=== PATIENT | female | born 2005 | race Caucasian/White ===

== ENCOUNTER 2024-06-28 06:55 | Emergency (ER) | payer MEDICAID ==
[~2024-06-28] VITALS: Ht 165.1 cm; Wt 68.0 kg
[2024-06-28 07:29] LABS: BASOPHILS % (AUTO) 0.5 % (0-1); EOSINOPHILS # (AUTO) 0.1 X10'3 (0-0.9); EOSINOPHILS % (AUTO) 1.3 % (0-6); HEMATOCRIT 41.2 % (35.0-45.0); HEMOGLOBIN 14.5 g/dl (12.0-16.0); LYMPHOCYTES # (AUTO) 1.1 X10'3 (1.1-4.8); LYMPHOCYTES % (AUTO) 13.7 % (21-51); MEAN CORPUSCULAR HEMOGLOBIN 29.8 PG (27.0-31.0); MEAN CORPUSCULAR HGB CONC 35.2 g/dL (33.0-36.5); MEAN CORPUSCULAR VOLUME 84.7 FL (78-98); MEAN PLATELET VOLUME 8.1 FL (7.4-10.4); MONOCYTES # (AUTO) 0.7 X10'3 (0-0.9); MONOCYTES % (AUTO) 8.3 % (2-12); NEUTROPHILS # (AUTO) 6.1 X10'3 (1.8-7.7); NEUTROPHILS % (AUTO) 76.2 % (42-75); PLATELET COUNT 257 X10'3 (140-440); RED BLOOD COUNT 4.87 X10'6 (4.20-5.60); RED CELL DISTRIBUTION WIDTH 13.4 % (11.5-14.5)
[2024-06-28 07:31] VITALS: TEMP 98.5
[2024-06-28 07:32] LABS: URINE HCG NEGATIVE (NEG)
[2024-06-28 07:43] LABS: ALANINE AMINOTRANSFERASE 12 U/L (12-78); ALKALINE PHOSPHATASE 90 IU/L (46-116); ANION GAP 11 (8-16); ASPARTATE AMINO TRANSFERASE 14 U/L (10-37); BILIRUBIN,TOTAL 0.5 MG/DL (0.1-1.0); BLOOD UREA NITROGEN 9 MG/DL (7-18); BUN/CREATININE RATIO 10.8 (10.0-20.0); CALCIUM 8.4 MG/DL (8.5-10.1); CHLORIDE 106 MMOL/L (99-107); CREATININE 0.83 MG/DL (0.40-0.90); GLUCOSE 81 MG/DL (70-104); LIPASE 30 U/L (16-77); POTASSIUM 3.5 MMOL/L (3.5-5.1); SODIUM 139 MMOL/L (135-145); TOTAL CARBON DIOXIDE 22.1 MMOL/L (24-32); eCRCL 96 ML/MIN; eGFR 87 ML/MIN
[2024-06-28 07:46] LABS: BILIRUBIN,URINE NEGATIVE (Neg); CLARITY,URINE CLEAR (Clear); COLOR,URINE YELLOW (Yellow); GLUCOSE, URINE NEGATIVE (Neg); KETONES,URINE NEGATIVE (Neg); LEUKOCYTE ESTERASE ,URINE NEGATIVE (Neg); NITRITES, URINE NEGATIVE (Neg); OCCULT BLOOD,URINE TRACE-INTACT (Neg); PH,URINE 5.5 (4.8-8.0); PROTEIN,URINE NEGATIVE (Neg); UROBILINOGEN,URINE 0.2 E.U/dL (0.2-1.0)
[2024-06-28 08:09] LABS: UA COLLECTION TYPE CLN CATCH MIDSTREAM
[2024-06-28 08:11] LABS: BACTERIA,URINE FEW /HPF (Neg); MUCUS STRANDS FEW /LPF (Neg); SQUAMOUS EPITHELIAL CELL,UR FEW /LPF (FEW); WBC,URINE 0-4 /HPF (0-4)
[2024-06-28 08:57] VITALS: BP 115/74; PULSE 78; RESP 16; O2SAT 99
== END 2024-06-28 08:58 | disposition home or self-care (01) ==
LOC: ER 06:56
DX: R10.32 Left lower quadrant pain (principal)
CPT/HCPCS: 36415; 76856; 80053; 81001; 81025; 83690; 84145; 85025; 93976; 99284

== ENCOUNTER 2025-02-11 19:03 | Emergency (ER) | payer MEDICAID ==
[~2025-02-11] VITALS: Ht 165.1 cm; Wt 71.8 kg
[2025-02-11 19:06] VITALS: BP 111/81; PULSE 105; RESP 16; TEMP 97.8; O2SAT 100
[2025-02-11 20:11] LABS: HCG SERUM QL POSITIVE
--- NOTE | 2025-02-11 20:56 | Physician Documentation ---
History of Present Illness General Chief Complaint: See Chief Complaint Stated Complaint: PG BLOOD TEST Time Seen by MD: 20:53 History of Present Illness Initial Comments This is a 27-year-old female who presents requesting a blood test as she has had three positive home test though one negative urine test at her primary care provider's office. Reports no other acute symptoms or concerns. Patient reports LMP January 17. Medication Reconciliation Allergies: Coded Allergies: No Known Allergies (Unverified , 11/12/24) Past Medical History Past Medical History: No Pertinent History Review of Systems ROS As stated above in the HPI, otherwise all systems are reviewed and negative. Physical Exam Physical Exam Vital Signs: Temperature: 97.8, Source: Temporal, Heart Rate: 105, Respiratory Rate: 16, BP: 111/81, Pulse Oximetry: 100, Weight: 71.820 Oxygen Flow Rate: 0 Physical Exam VITALS: Reviewed and as above. GENERAL: Alert, nontoxic appearing, no apparent distress. RESPIRATORY: No increased work of breathing, no respiratory distress, speaking in full clear sentences Progress Results/Orders Results/Orders Completed Orders - [facility] [employer] Hcg Serum Ql (02/11/25 19:14) Vital Signs 02/11/25 19:06 Temp 97.8 Pulse 105 Resp 16 B/P (MAP) 111/81 Pulse Ox 100 O2 Flow Rate 0 Laboratory Tests Test 02/11/25 19:38 Human Chorionic Gonadotropin, Qual Positive Medical Decision Making Findings This 19-year-old female presented requesting a serum test due to inconsistent readings of outpatient urine test, serum test was positive and patient will follow up with primary care provider and OB provider tomorrow. Patient had no other acute symptoms or concerns in his otherwise well-appearing and appropriate for outpatient follow up. Departure Disposition: HOME / SELF CARE / HOMELESS Impression: Primary Impression: Qualified Codes: Z3A.01 - Less than 8 weeks gestation of Condition: Improved Discharge Instructions: ABCs of Additional Instructions: Your test was positive. Please follow up with your OB provider as soon as possible. Please follow up with your primary care provider in the next few days. Please return to the emergency department for any new or worsening concerning symptoms. Referrals: NO PRIMARY CARE PROVIDER (PCP) Education Educated: Patient Educated regarding: diagnosis, treatment, prognosis, need for follow up Signature Scribe Signature: No scribe Attestation: The note accurately reflects work and decisions made by me.GARY Mullins 02/12/25 01:37 CHLOÉ MCCRAYP Feb 11, 2025 20:56
== END 2025-02-11 21:09 | disposition home or self-care (01) ==
LOC: ER 19:04
DX: O26.891 Other specified pregnancy related conditions, first trimester (principal); Z3A.01 Less than 8 weeks gestation of pregnancy
CPT/HCPCS: 36415; 84703; 99283

== ENCOUNTER 2025-04-15 12:27 | Emergency (ER) | payer MEDICAID, SELFPAY ==
[~2025-04-15] VITALS: Ht 165.1 cm; Wt 68.2 kg
[2025-04-15 12:36] VITALS: BP 102/87; PULSE 78; RESP 18; TEMP 97.6; O2SAT 98
== END 2025-04-15 20:38 | disposition left against medical advice (07) ==
LOC: ER 12:28
DX: O26.891 Other specified pregnancy related conditions, first trimester (principal); O21.8 Other vomiting complicating pregnancy; Z3A.12 12 weeks gestation of pregnancy; Z53.21 Procedure and treatment not carried out due to patient leaving prior to being seen by health care provider